=== PATIENT | male | born 2000 | race Caucasian/White ===

== ENCOUNTER 2021-01-10 07:30 | Inpatient (IN) | payer MEDICAID ==
[~2021-01-10] VITALS: Ht 165.1 cm; Wt 59.0 kg
[2021-01-10] MEDS ORDERED: FAMOTIDINE 20MG/2ML VIAL IV STA (09:20)
[2021-01-10] MEDS ORDERED: KETOROLAC 30MG/ML VIAL IV STA (09:20)
[2021-01-10] MEDS ORDERED: SODIUM CHLORIDE 0.9% 1,000 ML IV ONE (09:30)
[2021-01-10 09:32] LABS: BASOPHILS % 0.4 % (0.0-2.0); EOSINOPHILS % 0.2 % (0.0-5.0); HEMATOCRIT. 41.9 % (42.0-52.0); HEMOGLOBIN. 14.3 g/dL (14.0-18.0); MEAN CORPUSCULAR HEMOGLOBIN 30.9 pg (28.0-32.0); MEAN CORPUSCULAR VOLUME 90.9 fL (80.0-94.0); MEAN PLATELET VOLUME 8.5 fl (7.4-10.4); MONOCYTES % 3.9 % (2.0-8.0); NEUTROPHILS % 83.5 % (40.0-76.0); PLATELET 272 x1000/uL (130-400); RED BLOOD CELL COUNT 4.61 mill/uL (4.7-6.1); RED CELL DISTRIBUTION WIDTH 13.9 % (11.6-14.6)
[2021-01-10 09:34] LABS: CHLORIDE 107 mEq/L (98-107)
[2021-01-10 09:35] LABS: PROTHROMBIN TIME 10.9 sec (9.6-11.0)
[2021-01-10 09:36] LABS: ETHANOL BLOOD < 10 mg/dL
[2021-01-10 10:11] LABS: CLARITY URINE CLEAR (CLEAR); COLOR URINE YELLOW (YELLOW); KETONES URINE NEGATIVE (NEGATIVE); LEUKOCYTE ESTERASE URINE NEGATIVE (NEGATIVE); NITRITE URINE NEGATIVE (NEGATIVE); OCCULT BLOOD URINE NEGATIVE (NEGATIVE); PROTEIN URINE NEGATIVE (NEGATIVE); SPECIFIC GRAVITY URINE 1.012 (1.005-1.030); UROBILINOGEN URINE 0.2 E.U./dL (0.2-1.0)
[2021-01-10] MEDS ORDERED: SODIUM CHLORIDE 0.9% 1000ML BAG (SEPSIS BOLUS) IV ONE (10:30)
[2021-01-10] MEDS ORDERED: PIPERACILLIN/TAZ 3.375G PREMIX 50 ML IV ONE (10:30)
[2021-01-10 10:34] LABS: METHADONE URINE SCREEN NEGATIVE (NEGATIVE); OPIATES URINE SCREEN NEGATIVE (NEGATIVE); PHENCYCLIDINE URINE SCREEN NEGATIVE (NEGATIVE)
[2021-01-10 10:35] LABS: *AMPHETAMINES SCREEN URINE NEGATIVE (NEGATIVE); *BARBITURATES SCREEN URINE NEGATIVE (NEGATIVE); *BENZODIAZEPINES SCREEN URINE NEGATIVE (NEGATIVE); *COCAINE SCREEN URINE NEGATIVE (NEGATIVE); CANNABINOID URINE SCREEN PRESUMTIVE POSITIVE (NEGATIVE)
[2021-01-10 10:48] LABS: AMYLASE 222 IU/L (25-115)
[2021-01-10 16:00] VITALS: BP 114/76
[2021-01-10] MEDS ORDERED: ACETAMINOPHEN 325MG TABLET PO PRN ×2 (17:00)
[2021-01-10] MEDS ORDERED: DIPHENHYDRAMINE 50MG/ML VIAL IV PRN (17:00)
[2021-01-10] MEDS ORDERED: ONDANSETRON HCL 4MG/2ML INJ IV PRN (17:00)
[2021-01-10] MEDS ORDERED: MAGNESIUM/ALUMINUM HYDROXIDE/SIMETHICONE 30ML UDC PO PRN (17:00)
[2021-01-10] MEDS: SODIUM CHLORIDE 0.9% 1,000 ML IV SCH (19:03)
[2021-01-10 19:49] VITALS: BP 114/76
[2021-01-10 20:00] VITALS: BP 110/68
[2021-01-10] MEDS: KETOROLAC 30MG/ML VIAL IV PRN (22:19)
[2021-01-11] MEDS: SODIUM CHLORIDE 0.9% 1,000 ML IV SCH (03:00)
[2021-01-11] MEDS: KETOROLAC 30MG/ML VIAL IV PRN ×2 (05:38→16:41)
[2021-01-11 08:00] VITALS: BP 102/64
[2021-01-11] MEDS ORDERED: PANTOPRAZOLE SODIUM 40 MG/VIAL IV SCH (09:00)
[2021-01-11 12:00] VITALS: BP 91/50
[2021-01-11 16:00] VITALS: BP 132/72
[2021-01-11 17:22] VITALS: BP 132/72
== END 2021-01-11 18:00 | disposition home or self-care (01) | DRG 282 ==
LOC: ER 07:30 → 6EST 10:39 → EDBEDREQ 10:56 → EDBEDREQTM 10:56 → ENRESERV 14:12
PROVIDERS: ADMIT Internal Medicine; ATTEND Internal Medicine
DX: K85.90 Acute pancreatitis without necrosis or infection, unspecified (principal); E87.2 Acidosis; K80.20 Calculus of gallbladder without cholecystitis without obstruction; J45.909 Unspecified asthma, uncomplicated; Z83.3 Family history of diabetes mellitus
CPT/HCPCS: 36415; 74181; 76705; 80053; 80305; 80320; 81003; 82150; 83605; 83615; 85025; 99291; C9113; J1885; J2543; J3490; J7030; A4315; G0480